=== PATIENT | female | born 1950 | race Caucasian/White ===

== ENCOUNTER 2021-06-19 11:05 | Outpatient (CLI) | payer MEDICARE, OTHER, SELFPAY ==
--- NOTE | 2021-06-19 | CT_ITS ---
WS: [id number] CTA ABDOMINAL AORTA WITH RUNOFF TECHNIQUE: Contrast enhanced CTA of the abdominal aorta with bilateral lower extremity runoff. Multip lanar reformatted images were obtained. MIP reformats were also reviewed. CLINICAL INFORMATION: FEMOROPOPLITEAL BYPASS COMPARISON: DLP: 1226.[address] scans at [facility] use at least one of these dose optimization techniques: automated e xposure control; mA and/or kV adjustment per patient size (includes targeted exams where dose is matc hed to clinical indication); or iterative reconstruction. FINDINGS: Normal liver. Normal spleen. Splenic granulomas. Normal GE junction. Normal gallbladder. Ri ght adrenal gland is normal. Left adrenal nodule is unchanged measuring 2.5 x 1.6 cm unchanged. Rossi l visualized pancreas. Mild prominence of the common bile duct is unchanged. Normal renal parenchymal enhancement. No hydronephrosis. Tiny exophytic right renal cortical cysts. S igmoid diverticulosis. No evidence of high-grade small or large bowel obstruction. Tiny fat-containin g umbilical hernia. Chronic emphysematous changes in the lung bases. Normal caliber abdominal aorta w ith moderate atheromatous disease. Celiac and SMA are patent. Ectatic lower thoracic aorta at the lev el the diaphragm measuring 2.8 x 3.2 cm AP by transverse unchanged from previous. Renal arteries are patent. Accessory left renal artery is patent. Prior endovascular aortic graft wit h biiliac extension. This is unchanged in appearance from previous. RIGHT: Right common iliac artery with stent is patent. Internal iliac artery is patent. Proximal exte rnal iliac artery is patent but occluded just after the origin. This is new from previous. External i liac artery remains occluded to the inguinal ligament. 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 Prior right femoropopliteal bypass graft is chronically occluded. [place] popliteal artery and superf icial femoral arteries are occluded. 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 LEFT: Left common iliac artery with stent is patent. Internal iliac artery is occluded. External enriqueta c artery is patent. Femoropopliteal bypass graft is patent. Bypassed popliteal artery is patent to th e trifurcation with three-vessel runoff to the ankle. Somewhat diminutive peroneal artery. CT/CT angio abd aorta runof 71528 IMPRESSION: 1. 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 Chronic occlus ion of the femoropopliteal bypass graft. Very poor collateral flow in the right leg with right BKA. 2. LEFT: Left femoropopliteal bypass graft is patent. Bypassed popliteal arter y is patent to the trifurcation with three-vessel runoff to the ankle. Somewhat diminutive peroneal artery. 3. Prior aortic endograft with biiliac extension. 4. Celiac and SMA are patent. 5. Ectatic aorta at the diaphragm measuring 2.8 x 3.2 cm AP by transverse unch anged from previous. 6. Enhancing left adrenal lesion measuring 2.5 x 1.6 cm stable compared to pre vious
[2021-06-19 11:54] LABS: Blood Urea Nitrogen 14 mg/dL (8-23)
[2021-06-19] MEDS: iodixanol 320 mg/mL 100mL Btl IV (13:52)
== END 2021-06-19 11:06 | disposition home or self-care (01) ==
PROVIDERS: PCP Nurse Practitioner Family; Visit Provider Surgery
DX: I73.9 Peripheral vascular disease, unspecified (principal); I74.5 Embolism and thrombosis of iliac artery; I77.819 Aortic ectasia, unspecified site; D49.7 Neoplasm of unspecified behavior of endocrine glands and other parts of nervous system
CPT/HCPCS: 75635; 82565; 84520; Q9967

== ENCOUNTER 2021-12-20 13:01 | Outpatient (CLI) | payer MEDICARE, OTHER, SELFPAY ==
[2021-12-20 16:30] LABS: Blood Urea Nitrogen 14 mg/dL (8-23)
== END 2021-12-20 13:02 | disposition home or self-care (01) ==
LOC: RAD 13:01
PROVIDERS: Radiology Neuroradiology; Visit Provider Surgery
DX: I70.212 Atherosclerosis of native arteries of extremities with intermittent claudication, left leg (principal); M79.652 Pain in left thigh; I71.4 Abdominal aortic aneurysm, without rupture
CPT/HCPCS: 82565; 84520

== ENCOUNTER 2021-12-23 13:12 | Outpatient (CLI) | payer MEDICARE, OTHER, SELFPAY ==
--- NOTE | 2021-12-23 13:24 | CT_ITS ---
WS: [id number] CTA ABDOMINAL AORTA WITH RUNOFF TECHNIQUE: Contrast enhanced CTA of the abdominal aorta with bilateral lower extremity runoff. Multip lanar reformatted images were obtained. MIP reformats were also reviewed. CLINICAL INFORMATION: ATHEROSCLEROSIS/PAIN IN L THIGH COMPARISON: June 19, 2021 DLP: 788.[address] scans at [facility] use at least one of these dose optimization techniques: automated e xposure control; mA and/or kV adjustment per patient size (includes targeted exams where dose is matc hed to clinical indication); or iterative reconstruction. FINDINGS:Normal caliber abdominal aorta with moderate atheromatous disease. Celiac and SMA are patent . Ectatic lower thoracic aorta at the level the diaphragm measuring 2.8 x 3.2 cm AP by transverse unc hanged from previous. Renal arteries are patent. Accessory left renal artery is patent. Prior endovas cular aortic graft with biiliac extension. This is unchanged in appearance from previous Normal liver. Normal spleen. Splenic granulomas. Normal GE junction. Normal gallbladder. Right adrena l gland is normal. Left adrenal nodule is unchanged measuring 2.5 x 1.6 cm unchanged. Normal visualiz ed pancreas. Mild prominence of the common bile duct is unchanged. Normal renal parenchymal enhanceme nt. No hydronephrosis. Tiny exophytic right renal cortical cysts. Sigmoid diverticulosis. Small fat- containing umbilical hernia today demonstrates a small amount of abutting and slightly pro truding transverse colon. No evidence of obstruction. RIGHT: Right common iliac artery stent appears new from previous. Internal iliac artery stent appears new from previous. Proximal external iliac artery is patent but occluded just after the origin. This is unchanged from p revious. External iliac artery remains occluded to the inguinal ligament. Common femoral artery is ch ronically occluded. Prior right femoropopliteal bypass graft is chronically occluded. [place] poplitea l artery and superficial femoral arteries are occluded. Right BKA with osteopenia similar to previous . LEFT: Left common iliac artery with graft extension is patent. Internal iliac artery is occluded. Ext ernal iliac artery is patent. Femoropopliteal bypass graft is patent. Femoral-popliteal graft origin in the lower LEFT groin demonstrates tortuosity with mild in graft stenosis is new from previous. Rec ommend correlation with interval revision. Tiny amount of ulceration or focal dissection along the pr oximal aspect of the graft. More induration in this area may be due to interval surgery or access. Bypassed popliteal artery is patent to the trifurcation with three-vessel runoff to the ankle. Somewh at diminutive peroneal artery. CT/CT angio abd aorta runof [id number] IMPRESSION: 1. Femoral-popliteal graft origin in the lower LEFT groin demonstrates tortuos ity with mild in graft stenosis new from previous. Recommend correlation with i nterval revision. Tiny amount of ulceration or focal dissection along the proxi mal aspect of the graft. No flow-limiting stenosis. 2. LEFT femoral popliteal bypass graft is otherwise patent. Bypassed popliteal artery is patent to the trifurcation with three-vessel runoff to the ankle. Sm all peroneal artery. This is unchanged from previous. 3. 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 Chronic occlusion of the RIGHT femoropopliteal bypass graft.Poor flow distally in the RIGHT BKA. 4. New patent RIGHT common iliac and internal iliac artery stents. 5. Prior aortic endograft with biiliac extension. 6. Celiac and SMA are patent. 7. Ectatic aorta at the diaphragm measuring 2.8 x 3.2 cm AP by transverse unch anged from previous. 8. Enhancing left adrenal lesion measuring 2.5 x 1.6 cm stable compared to pre vious 9. Small fat- containing umbilical hernia today demonstrates a small amount of abutting and slightly protruding transverse colon. No evidence of obstruction.
[2021-12-23] MEDS: iohexol 350 mg/mL 100 mL Btl IV (14:26)
== END 2021-12-23 13:13 | disposition home or self-care (01) ==
PROVIDERS: Visit Provider Surgery
DX: I70.90 Unspecified atherosclerosis (principal); M79.605 Pain in left leg; K42.9 Umbilical hernia without obstruction or gangrene
CPT/HCPCS: 75635

== ENCOUNTER 2022-05-29 11:22 | Emergency (ER) | payer MEDICARE, OTHER, SELFPAY ==
[2022-05-29 11:50] VITALS: BP 143/75; PULSE 70; RESP 18; TEMP 36.6; O2SAT 95; BMI 23.1
--- NOTE | 2022-05-29 12:33 | ED_ITS ---
HPI - General Adult General: Chief complaint: General Medical Stated complaint: post op bleeding Time Seen by Provider: 05/29/22 12:05 History of Present Illness: Patient comes in with bleeding in her left groin. States that a month ago she had a stent placed in her artery due to insufficient arterial flow in her leg. States that since then she has had off-and-on bleeding from the wound. States she had a CT scan 2 days ago done at [facility]. I talked to Dr. Fry her vascular surgeon who has reviewed the CT and he states that it looks unremarkable except for a small seroma under the skin. The patient is here today because it opened up and started bleeding this morning. Associated symptoms: Deny chest pain, dyspnea, headache(s), nausea, rash, palpitations or vomiting Review of Systems Const: Denies: fever(s) or body aches Eyes: Denies: change in vision or blurry vision ENMT: Denies: throat pain or odynophagia Card: Denies: chest pain or palpitations Resp: Denies: dyspnea or productive cough GI: Denies: abdominal pain, nausea or vomiting : Denies: flank pain or dysuria Musc: Denies: neck pain or back pain Skin/Breast: Denies: rash or pruritus Neuro: Denies: headache(s) or numbness in extremities Psych: Denies: anxiety or change in appetite Endo: Denies: polyuria or excessive sweating Physical Exam Const: COMMON NORMALS: no acute distress, patient oriented x3, healthy appearing and alert HENMT: COMMON NORMALS: normocephalic and atraumatic HEAD & SCALP: normocephalic and atraumatic Eye: COMMON NORMALS: Equal, round and reactive pupils present and EOMs intact bilaterally PUPIL: Yes Equal, round and reactive pupils present Neck/C-Spine: COMMON NORMALS: full ROM and supple Resp: COMMON NORMALS: normal respiratory effort, No retractions and No use of accessory muscles Cardio: COMMON NORMALS: regular rate and regular rhythm RATE: regular rate RHYTHM: regular rhythm GI: COMMON NORMALS: Normal to inspection, nondistended, normoactive bowel sounds present, Soft to palpation and non-tender PALPATION: Yes Soft to palpation Back/Pelvis: COMMON NORMALS: thoracic and lumbar spine normal to inspection and no thoracic nor lumbar tenderness Extremity: OTHER: dark serosanguineous drainage from 1/2 cm by half centimeter fluctuant area in her left groin. No surrounding erythema, purulence, or other signs of infection, right lower leg amputation Neuro: COMMON NORMALS: patient oriented x3 SENSORIUM/ORIENTATION: Yes alert Psych: COMMON NORMALS: mental status grossly normal and cooperative Skin: COMMON NORMALS: no rashes or lesions noted and no wounds GENERAL SKIN EXAM: no rashes or lesions noted Course Vital Signs: Vital signs: Vital Signs Temperature 97.9 F 05/29/22 11:50 Pulse Rate 70 05/29/22 11:50 Respiratory Rate 18 05/29/22 11:50 Blood Pressure 143/75 05/29/22 11:50 Pulse Oximetry 95 05/29/22 11:50 Oxygen Delivery Me thod 05/29/22 11:50 MDM - General Adult Medical Decision Making Patient comes in with bleeding in her left groin. States that a month ago she had a stent placed in her artery due to insufficient arterial flow in her leg. States that since then she has had off-and-on bleeding from the wound. States she had a CT scan 2 days ago done at [facility]. I talked to Dr. Fry her vascular surgeon who has reviewed the CT and he states that it looks unremarkable except for a small seroma under the skin. The patient is here today because it opened up and started bleeding this morning. On physical exam she has dark serosanguineous drainage from 1/2 cm by half centimeter fluctuant area in her left groin. No surrounding erythema, purulence, or other signs of infection. Will check labs, and reassess. On reassessment I talked to the patient about the test results. Her white blood cell count is 6.6 with a normal neutrophil count and no signs of infection on the blood work. I talked to her about keeping it clean and covered. Will discharge home at this time with precautions to return for worsening or changing symptoms. Lab Data 05/29/22 13:55 05/29/22 13:55 Laboratory Results WBC 6.6 10^3/uL (4.0-10.0) 05/29/22 13:55 RBC 4.11 10^6/uL (4.1-5.3) 05/29/22 13:55 Hgb 11.0 g/dL (11.5-15.3) L 05/29/22 13:55 Hct 35.0 % (37.0-47.0) L 05/29/22 13:55 MCV 85.2 fl (81-99) 05/29/22 13:55 MCH 26.8 pg (28.0-34.0) L 05/29/22 13:55 MCHC 31.4 g/dL (30.0-36.0) 05/29/22 13:55 RDW 13.6 % (12.1-15.1) 05/29/22 13:55 Plt Count 393 10^3/cmm (130-400) 05/29/22 13:55 MPV 10.7 fL (7.4-10.4) H 05/29/22 13:55 Neut % (Auto) 65.8 % 05/29/22 13:55 Lymph % (Auto) 14.3 % 05/29/22 13:55 [place] % (Auto) 8.1 % 05/29/22 13:55 Eos % (Auto) 9.6 % 05/29/22 13:55 Baso % (Auto) 0.8 % 05/29/22 13:55 Neut # (Auto) 4.34 10^3/uL (1.8-7.7) 05/29/22 13:55 Lymph # (Auto) 0.9 10^3/uL (0.8-4.8) 05/29/22 13:55 [place] # (Auto) 0.5 10^3/uL (0.2-0.9) 05/29/22 13:55 Eos # (Auto) 0.6 10^3/uL (0.0-0.8) 05/29/22 13:55 Baso # (Auto) 0.1 10^3/uL (0.0-0.1) 05/29/22 13:55 Nucleated RBC % (auto) 0 % 05/29/22 13:55 Nucleated RBCs # 0.0 /100WBC 05/29/22 13:55 Potassium 4.1 mmol/L (3.5-5.1) 05/29/22 13:55 Chloride 102 mmol/L (98-107) 05/29/22 13:55 Carbon Dioxide 23 mmol/L (22-29) 05/29/22 13:55 Anion Gap 14.1 (5-19) 05/29/22 13:55 BUN 15 mg/dL (8-23) 05/29/22 13:55 Creatinine 0.6 mg/dL (0.5-0.9) 05/29/22 13:55 GFR Calculation Not Reportable 05/29/22 13:55 Glucose 86 mg/dL (65-115) 05/29/22 13:55 Total Bilirubin 0.2 mg/dL (0.15-1.2) 05/29/22 13:55 AST 11 U/L (0-32) 05/29/22 13:55 ALT 8 U/L (0-33) 05/29/22 13:55 Alkaline Phosphatase 86 U/L (35-105) 05/29/22 13:55 Total Protein 6.7 g/dL (6.6-8.7) 05/29/22 13:55 Albumin 4.0 g/dL (3.5-5.2) 05/29/22 13:55 Globulin 2.7 g/dL (1.3-4.6) 05/29/22 13:55 Discharge Plan Discharge Patient Disposition: Home Clinical Impression: Seroma after procedure Condition: Stable Discharge Orders: Discharge ED (Routine); Ordered 05/29/22 Ordered By: Dm Smith Referrals: Ronny Adan MD [Primary Care Provider] - Patient Instructions: Seroma (DC) Coding Level of Care Code ED Dyed Raw Stock Blower Feeder for Chg Fwd Exam Comprehensive
--- NOTE | 2022-05-29 13:59 | PC.NURSE ---
ACCESSED PT PORT PER DR. FULTON VO.
[2022-05-29 14:29] LABS: Basophils # 0.1 10^3/uL (0.0-0.1); Basophils % 0.8 %; Eosinophils # 0.6 10^3/uL (0.0-0.8); Eosinophils % 9.6 %; Lymphocytes # 0.9 10^3/uL (0.8-4.8); Lymphocytes % 14.3 %; Mean Corpuscular HGB Conc 31.4 g/dL (30.0-36.0); Mean Corpuscular Hemoglobin 26.8 pg (28.0-34.0); Mean Corpuscular Volume 85.2 fl (81-99); Mean Platelet Volume 10.7 fL (7.4-10.4); Monocytes # 0.5 10^3/uL (0.2-0.9); Monocytes % 8.1 %; Neutrophils # 4.34 10^3/uL (1.8-7.7); Neutrophils % 65.8 %; Nucleated Red Blood Cells % 0 %; Platelet Count 393 10^3/cmm (130-400); Red Blood Count 4.11 10^6/uL (4.1-5.3); Red Cell Distribution Width 13.6 % (12.1-15.1); White Blood Count 6.6 10^3/uL (4.0-10.0)
[2022-05-29 14:47] LABS: Alanine Aminotransferase 8 U/L (0-33); Alkaline Phosphatase 86 U/L (35-105); Anion Gap 14.1 (5-19); Aspartate Amino Transferase 11 U/L (0-32); Blood Urea Nitrogen 15 mg/dL (8-23); Calcium 11.2 mg/dL (8.5-10.5); Carbon Dioxide 23 mmol/L (22-29); Chloride 102 mmol/L (98-107); Creatinine Clr Calc Pharmacy 56.6672; Globulin 2.7 g/dL (1.3-4.6); Glucose 86 mg/dL (65-115); Osmolality Calculated 280 mOsm/kg (285-295); Potassium 4.1 mmol/L (3.5-5.1); Sodium 135 mmol/L (136-145); Total Bilirubin 0.2 mg/dL (0.15-1.2); Total Protein 6.7 g/dL (6.6-8.7)
== END 2022-05-29 15:30 | disposition home or self-care (01) ==
PROVIDERS: Emergency Provider Emergency Medicine; PCP Internal Medicine
DX: I97.648 Postprocedural seroma of a circulatory system organ or structure following other circulatory system procedure (principal)
CPT/HCPCS: 36415; 80053; 85025; 99283